=== PATIENT | male | born 1985 | race Asian ===

== ENCOUNTER 2019-03-26 10:16 | Emergency (ER) | payer BC ==
--- NOTE | 2019-03-26 10:38 | EDM.PDOC ---
ED HPI GENERAL MEDICAL PROBLEM - General Chief Complaint: Laceration Stated Complaint: CUT RT THUMB Time Seen by Provider: 03/26/19 10:26 Source of Information: Reports: Patient History Limitations: Reports: No Limitations - History of Present Illness INITIAL COMMENTS - FREE TEXT/NARRATIVE: History of present illness: []Patient smashed his right thumb with metal plate prior to arrival. He is not up-to-date with tetanus. He denies any other injuries Review of systems: As per history of present illness and below otherwise all systems reviewed and negative. Past medical history: As per history of present illness and as reviewed below otherwise noncontributory. Surgical history: As per history of present illness and as reviewed below otherwise noncontributory. Social history: No reported history of drug or alcohol abuse. Family history: As per history of present illness and as reviewed below otherwise noncontributory. Physical exam: General: Well developed, well nourished in NAD HEENT: Atraumatic, normocephalic, pupils reactive, negative for conjunctival pallor or scleral icterus, mucous membranes moist, throat clear, neck supple, nontender, trachea midline. Lungs: Clear to auscultation, breath sounds equal bilaterally, chest nontender. Heart: S1S2, regular, negative for clicks, rubs, or JVD. Abdomen: NABS, Soft, nondistended, nontender. Negative for masses or hepatosplenomegaly. Negative for costovertebral tenderness. Pelvis: Stable nontender. Genitourinary: Deferred. Rectal: Deferred. Extremities: Right thumb with laceration at the cuticle extending to the lateral part of his thumb, earlier refill sensations intact negative for cords or calf pain. Neurovascular unremarkable. Neuro: Awake, alert, oriented. Cranial nerves II through XII unremarkable. Cerebellum unremarkable. Motor and sensory unremarkable throughout. Exam nonfocal. Skin:warm and dry Diagnostics: X-rays right thumb-open fx Therapeutics: Tetanus status updated, declined nerve block, Ancef IM given ED Course: Stable Impression: Open fracture distal phalanx Prescriptions: Keflex, tramadol Plan: Take meds as directed, follow up with hand sheavy looked they went to [facility] urgery , return to ER if symptoms worsen or change. Definitive disposition and diagnosis as appropriate pending reevaluation and review of above. right thumb Pain Score (Numeric/FACES): 3 - Related Data Allergies Allergy/AdvReac Type Severity Reaction Status Date / Time No Known Allergies Allergy Verified 03/26/19 10:55 Home Meds: Home Meds cephALEXin [Keflex] 500 mg PO Q8H #21 cap 03/26/19 [Rx] traMADol HCl [Tramadol HCl] 50 mg PO Q6H PRN #16 tablet 03/26/19 [Rx] ED ROS GENERAL - Review of Systems Review Of Systems: ROS reveals no pertinent complaints other than HPI. ED EXAM, SKIN/RASH Exam: See Below (See history of present illness) Course - Vital Signs Last Recorded V/S: Last Vital Signs Temp 97.3 F 03/26/19 10:55 Pulse 74 03/26/19 10:55 Resp 16 03/26/19 10:55 BP 137/72 03/26/19 10:55 Pulse Ox 99 03/26/19 10:55 - Orders/Labs/Meds Orders: Active Orders 24 hr Category Date Time Status Vaccines to be Administered [RC] PER UNIT ROUTINE Care 03/26/19 10:57 Active Meds: Medications Discontinued Medications Generic Name Dose Route Start Last Admin Trade Name Freq PRN Reason Stop Dose Admin Cefazolin Sodium 1 gm 03/26/19 11:32 03/26/19 12:03 Ancef IM 03/26/19 11:33 1 gm ONETIME ONE Administration Diphtheria/Tetanus/Acell Pertussis 0.5 ml 03/26/19 10:57 03/26/19 11:19 Adacel IM 03/26/19 10:58 0.5 ml .ONCE ONE Administration Sterile Water Confirm 03/26/19 11:57 03/26/19 12:03 Sterile Water For Injection Administered 03/26/19 11:58 Not Given Dose 20 mls @ as directed .ROUTE .STK-MED ONE Lidocaine HCl Confirm 03/26/19 12:20 Xylocaine-Mpf 1% Administered 03/26/19 12:21 Dose 5 mls @ as directed .ROUTE .STK-MED ONE Lidocaine HCl 20 ml 03/26/19 12:15 Xylocaine 1% INJECT 03/26/19 12:16 ONETIME ONE Sterile Water 2.5 ml 03/26/19 12:00 03/26/19 12:03 Sterile Water For Injection INJECT 03/26/19 12:01 2.5 ml ONETIME ONE Administration Departure - Departure Time of Disposition: 12:34 Disposition: Home, Self-Care 01 Condition: Good Clinical Impression: Open fracture of distal phalanx of thumb Qualifiers: Encounter type: initial encounter Fracture alignment: displaced Laterality: right Qualified Code(s): S62.521B - Displaced fracture of distal phalanx of right thumb, initial encounter for open fracture - Discharge Information *PRESCRIPTION DRUG MONITORING PROGRAM REVIEWED*: No *COPY OF PRESCRIPTION DRUG MONITORING REPORT IN PATIENT NATALIE: No Prescriptions: cephALEXin [Keflex] 500 mg PO Q8H #21 cap traMADol HCl [Tramadol HCl] 50 mg PO Q6H PRN #16 tablet PRN Reason: Pain Referrals: PCP,None [Primary Care Provider] - Forms: ED Department Discharge Additional Instructions: The following information is given to patients seen in the emergency department who are being discharged to home. This information is to outline your options for follow-up care. We provide all patients seen in our emergency department with a follow-up referral. The need for follow-up, as well as the timing and circumstances, are variable depending upon the specifics of your emergency department visit. If you don't have a primary care physician on staff, we will provide you with a referral. We always advise you to contact your personal physician following an emergency department visit to inform them of the circumstance of the visit and for follow-up with them and/or the need for any referrals to a consulting specialist. The emergency department will also refer you to a specialist when appropriate. This referral assures that you have the opportunity for follow-up care with a specialist. All of these measure are taken in an effort to provide you with optimal care, which includes your follow-up. Under all circumstances we always encourage you to contact your private physician who remains a resource for coordinating your care. When calling for follow-up care, please make the office aware that this follow-up is from your recent emergency room visit. If for any reason you are refused follow-up, please contact the [facility] at and asked to speak to the emergency department charge nurse. Take meds as directed, follow up with your primary care physician, return to ER if symptoms worsen or change. [facility] [address] [place] [address], [address] [place] [address] - My Orders Last 24 Hours: My Active Orders 03/26/19 10:57 Vaccines to be Administered [RC] PER UNIT ROUTINE - Assessment/Plan Last 24 Hours: My Active Orders 03/26/19 10:57 Vaccines to be Administered [RC] PER UNIT ROUTINE
[2019-03-26] MEDS ORDERED: Diphtheria,Pertussis(Acell),Tetanus Vaccine 0.5 ML Syringe IM ONE (10:57)
[2019-03-26] MEDS ORDERED: ceFAZolin 1 GM Vial IM ONE (11:32)
[2019-03-26] MEDS ORDERED: Water For Injection, Sterile 20 ML ONE (11:57)
[2019-03-26] MEDS ORDERED: Water For Injection, Sterile 20 ML SDV INJECT ONE (12:00)
[2019-03-26] MEDS ORDERED: Lidocaine 1% 20 ML MDV INJECT ONE (12:15)
--- NOTE | 2019-03-26 12:30 | CR ---
Indication crush injury Three views of the right thumb. FINDINGS: Fracture of the distal tip of the right thumb distal phalanx. Slight volar displacement. Soft tissue swelling present. Slight distraction of fracture fragment. Dictated by Aline Mccrary MD @ Mar 26 2019 12:26PM Signed by Dr. Aline Mccrary @ Mar 26 2019 12:28PM
== END 2019-03-26 12:55 | disposition home or self-care (01) ==
LOC: MW.ED 10:16
DX: S62.521B Displaced fracture of distal phalanx of right thumb, initial encounter for open fracture (principal); W23.1XXA Caught, crushed, jammed, or pinched between stationary objects, initial encounter; Z23 Encounter for immunization
CPT/HCPCS: 73140; 90471; 90715; 99282; J0690; J2001